=== PATIENT | male | born 1995 | race Caucasian/White ===

== ENCOUNTER 2024-01-27 13:10 | Emergency (ER) | payer OTHER ==
--- NOTE | 2024-01-27 13:56 | ED ---
Extremity Problem HPI - General Chief complaint: Extremity Problem,Nontraumatic Stated complaint: Leg swelling Time Seen by Provider: 01/27/24 13:34 Source: patient, RN notes reviewed Mode of arrival: wheelchair Limitations: no limitations - History of Present Illness Initial comments: This is a 28-year-old male who presents to the emergency department for right leg pain. Patient presents from [facility]. States that he checked in yesterday for cocaine and marijuana use. He has been on Keflex for cellulitis to the right lower extremity, but states that he continues to have pain. He has pain down in the calf, however he has noticed swelling in the knee. Denies any injuries. MD Complaint: extremity pain - Related Data Previous Rx's Medication Instructions Recorded Ketorolac [Toradol] 10 mg PO Q6HR PRN #15 tab 01/27/24 Allergies Allergy/AdvReac Type Severity Reaction Status Date / Time No Known Allergies Allergy Verified 01/27/24 13:22 Review of Systems ROS Statement: Those systems with pertinent positive or pertinent negative responses have been documented in the HPI. ROS Other: All systems not noted in ROS Statement are negative. Past Medical History Past Medical History: No Reported History History of Any Multi-Drug Resistant Organisms: None Reported Past Surgical History: Orthopedic Surgery Past Psychological History: No Psychological Hx Reported Smoking Status: Current every day smoker Past Alcohol Use History: None Reported Past Drug Use History: Cocaine General Exam Limitations: no limitations General appearance: alert, in no apparent distress Head exam: Present: atraumatic, normocephalic, normal inspection Respiratory exam: Present: normal lung sounds bilaterally. Absent: respiratory distress, wheezes, rales, rhonchi, stridor Cardiovascular Exam: Present: regular rate, normal rhythm, normal heart sounds. Absent: systolic murmur, diastolic murmur, rubs, gallop, clicks Extremities exam: Present: other (Multiple scabs to the right lower extremity. Diffuse tenderness without any obvious swelling or erythema. 2+ DP and PT pulses.) Neurological exam: Present: alert, oriented X3, CN II-XII intact Psychiatric exam: Present: normal affect, normal mood Course Vital Signs 01/27/24 01/27/24 13:18 16:31 Temperature 98.8 F 98.3 F Pulse Rate 91 89 Respiratory 16 18 Rate Blood Pressure 125/69 116/82 O2 Sat by Pulse 94 L 98 Oximetry Medical Decision Making - Medical Decision Making This is a 28 year old male who presents to the emergency department for right leg pain. Was pt. sent in by a medical professional or institution? @ -[facility] Did you speak to anyone other than the patient for history? @ -No Did you review nursing and triage notes? @ -Yes, and I agree, it is accurate with regards to the patient's symptoms. Were old charts reviewed? @ -No Differential Diagnosis? @ -Differential Leg Pain: Leg fracture, leg sprain, DVT, PVD, arterial insufficiency, iliac artery aneurysm, cellulitis, compartment syndrome, tendinopathy, nerve entrapment, piriformis syndrome, osteoarthritis, rhabdomyolysis, myositis, cramping from an electrolyte imbalance, this is not meant to be an all inclusive list. EKG interpreted by me (3pts min.)? @ -Not obtained X-rays interpreted by me (1pt min.)? @ -X-ray of the right knee and tib-fib obtained. My interpretation identifies no acute fractures. CT interpreted by me (1pt min.)? @ -Not obtained U/S interpreted by me (1pt. min.)? @ -Duplex ultrasound of the right lower extremity obtained. My interpretation identifies no evidence of a DVT. What testing was considered but not performed? (CT, X-rays, U/S, labs)? Why? @ -None What meds were considered but not given? Why? @ -None Did you discuss the management of the patient with other professionals? @ -No Did you reconcile home meds? @ -No Was smoking cessation discussed for >3mins.? @ -I discussed smoking cessation for greater than 3 minutes. The risk of smoking were discussed with the patient including but not limited to risks of cancer, stroke, coronary artery disease and COPD. Also discussed with patient were multiple methods of quitting smoking. Lastly we discussed the financial cost of smoking. Was critical care preformed (if so, how long)? @ -No Were there social determinants of health that impacted care today? How? (Homelessness, low income, unemployed, alcoholism, drug addiction, transportation, low edu. Level, literacy, decrease access to med. care, alf, rehab)? @ -No Was there de-escalation of care discussed even if they declined? (Discuss DNR or withdrawal of care, Hospice)? @ -No What co-morbidities impacted this encounter? (DM, HTN, Smoking, COPD, CAD, Cancer, CVA, Hep., AIDS, mental health diagnosis, sleep apnea, morbid obesity)? @ -Smoking Was patient admitted / discharged? @ -Discharged. On exam patient had multiple scabs, however there was no obvious swelling or erythema and the patient was neurovascularly intact. X-ray of the right knee and tib-fib demonstrates a mild suprapatellar bursal fluid collection without other acute process. Duplex ultrasound of the right lower extremity obtained also revealing no acute findings. Patient's symptoms were well-controlled in the emergency department. He was given a prescription for Toradol and a knee immobilizer was provided to be used as needed. Patient discharged back to [facility] in stable condition. Undiagnosed new problem with uncertain prognosis? @ -None Drug Therapy requiring intensive monitoring for toxicity (Heparin, Nitro, Insulin, Cardizem)? @ -None Were any procedures done? @ -None Diagnosis/symptom? @ -Right leg pain, joint effusion Acute, or Chronic, or Acute on Chronic? @ -Acute Uncomplicated (without systemic symptoms) or Complicated (systemic symptoms)? @ -Uncomplicated Side effects of treatment? @ -None Exacerbation, Progression, or Severe Exacerbation] @ -Not applicable Poses a threat to life or bodily function? @ -No Return precautions reviewed in depth, the patient is instructed to return to the emergency department with any new, worsening, or concerning symptoms. Patient verbalized understanding. This case was discussed in detail with the attending ED physician, Dr. Gotti. Presentation, findings, and treatment plan discussed in detail as well. - Lab Data Result diagrams: 01/27/24 14:46 01/27/24 14:46 Lab Results 01/27/24 01/27/24 01/27/24 Range/Units 14:46 14:46 14:46 WBC 6.9 (3.8-10.6) k/uL RBC 5.36 (4.30-5.90) m/uL Hgb 15.0 (13.0-17.5) gm/dL Hct 46.4 (39.0-53.0) % MCV 86.5 (80.0-100.0) fL MCH 28.0 (25.0-35.0) pg MCHC 32.3 (31.0-37.0) g/dL RDW 12.5 (11.5-15.5) % Plt Count 346 (150-450) k/uL MPV 7.5 Neutrophils % 71 % Lymphocytes % 21 % Monocytes % 5 % Eosinophils % 1 % Basophils % 0 % Neutrophils # 4.9 (1.3-7.7) k/uL Lymphocytes # 1.5 (1.0-4.8) k/uL Monocytes # 0.4 (0-1.0) k/uL Eosinophils # 0.1 (0-0.7) k/uL Basophils # 0.0 (0-0.2) k/uL Sodium 139 (137-145) mmol/L Potassium 4.4 (3.5-5.1) mmol/L Chloride 106 (98-107) mmol/L Carbon Dioxide 26 (22-30) mmol/L Anion Gap 7 mmol/L BUN 16 (9-20) mg/dL Creatinine 0.90 (0.66-1.25) mg/dL Est GFR (CKD-EPI)AfAm >90 (>60 ml/min/1.73 sqM) Est GFR (CKD-EPI)NonAf >90 (>60 ml/min/1.73 sqM) Glucose 79 (74-99) mg/dL Plasma Lactic Acid Duncan 1.3 (0.7-2.0) mmol/L Calcium 9.7 (8.4-10.2) mg/dL Phosphorus 4.3 (2.5-4.5) mg/dL Magnesium 1.9 (1.6-2.3) mg/dL Total Bilirubin 0.4 (0.2-1.3) mg/dL AST 34 (17-59) U/L ALT 34 (4-49) U/L Alkaline Phosphatase 51 (38-126) U/L Creatine Kinase 84 (55-170) U/L C-Reactive Protein <0.5 (<1.0) mg/dL Total Protein 7.1 (6.3-8.2) g/dL Albumin 4.4 (3.5-5.0) g/dL - Radiology Data Radiology results: report reviewed, image reviewed Disposition Clinical Impression: Right knee pain, Joint effusion of knee Disposition: HOME SELF-CARE Instructions (If sedation given, give patient instructions): Swollen Knee Joint (ED), Leg Pain (ED) Additional Instructions: Return to the emergency department with any new, worsening, or concerning symptoms. Take the Toradol with Tylenol as needed for pain relief. If you choose to take the Toradol, do not take any other anti-inflammatories such as ibuprofen, take one or the other. Keep the leg elevated and use an Francisco bandage or knee brace as needed. Follow up with your primary care provider in 1-2 days. Prescriptions: Ketorolac [Toradol] 10 mg PO Q6HR PRN #15 tab PRN Reason: Pain Is patient prescribed a controlled substance at d/c from ED?: No Referrals: Nonstaff,Physician [Primary Care Provider] - 1-2 days Time of Disposition: 15:46
--- NOTE | 2024-01-27 14:52 | XR ---
EXAMINATION TYPE: XR knee complete RT DATE OF EXAM: 01/27/2024 COMPARISON: NONE HISTORY: Pain TECHNIQUE: Three views are submitted. FINDINGS: Joint spaces are preserved. Osseous structures are intact. No acute fracture seen. Small suprapate llar bursal fluid collection. IMPRESSION: 1. No acute fracture or dislocation. 2 small amount of fluid in the suprapatellar bursa.
--- NOTE | 2024-01-27 14:53 | XR ---
EXAMINATION TYPE: XR tibia fibula RT DATE OF EXAM: 01/27/2024 COMPARISON: NONE HISTORY: Pain TECHNIQUE: Two views are submitted. FINDINGS: The osseous structures are intact. The joint spaces are preserved. IMPRESSION: 1. No acute osseous abnormality.
[2024-01-27] MEDS: KETOROLAC 15 MG/ML 1 ML VIAL IVP STA (15:00)
[2024-01-27] MEDS: ORPHENADRINE 30 MG/ML 2 ML VIAL IVP STA (15:00)
[2024-01-27] MEDS: SODIUM CHLORIDE 0.9% 1,000 ML IV STA (15:00)
[2024-01-27 15:09] LABS: Basophils % (A) 0 %; Eosinophils # (A) 0.1 k/uL (0-0.7); Eosinophils % (A) 1 %; HCT 46.4 % (39.0-53.0); Lymphocytes # (A) 1.5 k/uL (1.0-4.8); Lymphocytes % (A) 21 %; MCHC 32.3 g/dL (31.0-37.0); MCV 86.5 fL (80.0-100.0); Mean Platelet Volume 7.5; Monocytes # (A) 0.4 k/uL (0-1.0); Monocytes % (A) 5 %; Neutrophils # (A) 4.9 k/uL (1.3-7.7); Neutrophils % (A) 71 %; Platelet Count 346 k/uL (150-450); RBC 5.36 m/uL (4.30-5.90); RDW 12.5 % (11.5-15.5); WBC 6.9 k/uL (3.8-10.6)
[2024-01-27 15:21] LABS: ALT 34 U/L (4-49); AST 34 U/L (17-59); African American GFR (CKD) >90 (>60 ml/min/1.73 sqM); Albumin 4.4 g/dL (3.5-5.0); Alkaline Phosphatase 51 U/L (38-126); Anion Gap 7 mmol/L; Blood Urea Nitrogen 16 mg/dL (9-20); C Reactive Protein <0.5 mg/dL (<1.0); Calcium 9.7 mg/dL (8.4-10.2); Carbon Dioxide 26 mmol/L (22-30); Chloride 106 mmol/L (98-107); Creatine Kinase 84 U/L (55-170); Glucose 79 mg/dL (74-99); Magnesium 1.9 mg/dL (1.6-2.3); Non-African American GFR(CKD) >90 (>60 ml/min/1.73 sqM); Phosphorus 4.3 mg/dL (2.5-4.5); Potassium 4.4 mmol/L (3.5-5.1); Sodium 139 mmol/L (137-145); Total Bilirubin 0.4 mg/dL (0.2-1.3); Total Protein 7.1 g/dL (6.3-8.2)
--- NOTE | 2024-01-27 15:29 | US ---
EXAMINATION TYPE: US venous doppler duplex LE RT DATE OF EXAM: 01/27/2024 1:39 PM COMPARISON: NONE CLINICAL INDICATION: Male, 28 years old with history of Pain and swelling; Right knee pain SIDE PERFORMED: Right TECHNIQUE: The lower extremity deep venous system is examined utilizing real time linear array sonog richard with graded compression, doppler sonography and color-flow sonography. VESSELS IMAGED: Common Femoral Vein Deep Femoral Vein Greater Saphenous Vein * Femoral Vein Popliteal Vein Small Saphenous Vein * Proximal Calf Veins (* superficial vessels) Right Leg: Negative for DVT IMPRESSION: Grayscale, color doppler, spectral doppler imaging performed of the deep veins of the lo wer extremities. There is normal flow, compressibility, vascular waveforms.
[2024-01-27 16:33] VITALS: BP 116/82; PULSE 89; RESP 18; TEMP 98.3
== END 2024-01-27 16:50 | disposition home or self-care (01) ==
LOC: EC 13:10
DX: M25.461 Effusion, right knee (principal); F17.200 Nicotine dependence, unspecified, uncomplicated
CPT/HCPCS: 36415; 80053; 82550; 83605; 83735; 84100; 85025; 86140; 73590; 73562; 93971; 99284; 96374; 96375; 96361; 99406; L1830; J2360; J1885